=== PATIENT | female | born 1955 | race Caucasian/White ===

== ENCOUNTER 2017-09-05 23:33 | Emergency (ER) | payer BC, OTHER ==
[2017-09-06] MEDS ORDERED: Ondansetron 8 MG Tab.DIS PO ONE (00:01)
[2017-09-06] MEDS ORDERED: Alum Hydroxide/Mag Hydroxide 15 ML, Lidocaine 2% 15 ML PO ONE ×2 (00:01)
--- NOTE | 2017-09-06 00:06 | EDM.PDOC ---
ED HPI GENERAL MEDICAL PROBLEM - General Chief Complaint: General Stated Complaint: Epigastric pain Time Seen by Provider: 09/05/17 23:42 Source of Information: Reports: Patient, Family History Limitations: Reports: No Limitations - History of Present Illness INITIAL COMMENTS - FREE TEXT/NARRATIVE: 62 y.o.w.f with a h/o Hypothyroidism, was eating out last night and drank 4 cokes. 2 hours later, she felt a burning pain at her mid lower chest, not radiating. She stated, her had similar symptoms when he was diagnosed with an HI. No N/V no dizziness but chest burning. It subsides when she is walking, comes on when she goes from a supine position to a sitting position. Pt denies any cardiac risk factors. BP 163/83 pulse 85 temp 36.8 RR 20 Pulse ox 100% Onset Date: 09/05/17 Onset Time: 19:00 Duration: Hour(s):, Intermittent Location: Reports: Abdomen Quality: Reports: Burning Severity: Moderate Improves with: Reports: Rest Worsens with: Reports: Eating Context: Reports: Other (ate out, drank coke) Associated Symptoms: Reports: Other (epigastric pain) Epigastric Pain Score (Numeric/FACES): 5 - Related Data Allergies Allergy/AdvReac Type Severity Reaction Status Date / Time Sulfa (Sulfonamide Allergy Unknown unknown Verified 09/05/17 23:40 Antibiotics) Home Meds: Home Meds Levothyroxine 75 mcg PO ACBREAKFAST 09/05/17 [History] atorvaSTATin [Lipitor] 10 mg PO BEDTIME 09/05/17 [History] Past Medical History Gastrointestinal History: Reports: GERD Endocrine/Metabolic History: Reports: Hypothyroidism Social & Family History - Tobacco Use Smoking Status *Q: Never Smoker Second Hand Smoke Exposure: No - Alcohol Use Days Per Week of Alcohol Use: 0 - Recreational Drug Use Recreational Drug Use: No ED ROS GENERAL - Review of Systems Review Of Systems: See Below Constitutional: Reports: No Symptoms HEENT: Reports: No Symptoms Respiratory: Reports: No Symptoms Cardiovascular: Reports: No Symptoms Endocrine: Reports: No Symptoms GI/Abdominal: Reports: Abdominal Pain : Reports: No Symptoms Musculoskeletal: Reports: No Symptoms Skin: Reports: No Symptoms Neurological: Reports: No Symptoms Psychiatric: Reports: No Symptoms Hematologic/Lymphatic: Reports: No Symptoms Immunologic: Reports: No Symptoms ED EXAM, GENERAL - Physical Exam Exam: See Below Exam Limited By: No Limitations General Appearance: Alert, WD/WN, Mild Distress Eye Exam: Bilateral Eye: Normal Inspection Ears: Normal External Exam Ear Exam: Bilateral Ear: Auricle Normal Nose: Normal Inspection Throat/Mouth: Normal Inspection Head: Atraumatic, Normocephalic Neck: Normal Inspection Respiratory/Chest: No Respiratory Distress Cardiovascular: Normal Peripheral Pulses Peripheral Pulses: 1+: Brachial (L) GI/Abdominal: Normal Bowel Sounds, Tender (epigastric) (Female) Exam: Deferred Rectal (Female) Exam: Deferred Back Exam: Normal Inspection, Full Range of Motion Extremities: Normal Inspection, Normal Range of Motion, Non-Tender, No Pedal Edema, Normal Capillary Refill Neurological: Alert, Oriented, CN II-XII Intact, Normal Cognition, Normal Gait, No Motor/Sensory Deficits Psychiatric: Normal Affect, Normal Mood Skin Exam: Warm, Dry, Intact, Normal Color, No Rash Lymphatic: No Adenopathy EKG INTERPRETATION EKG Date: 09/06/17 Time: 00:55 Rhythm: NSR Rate (Beats/Min): 78 [place]: Normal P-Wave: Present QRS: Normal ST-T: Normal QT: Normal Comparison: NA - No Prior EKG Course - Vital Signs Text/Narrative:: 62 y.o.w.f with a h/o Hypothyroidism, was eating out last night and drank 4 cokes. 2 hours later, she felt a burning pain at her mid lower chest, not radiating. She stated, her had similar symptoms when he was diagnosed with an HI. No N/V no dizziness but chest burning. It subsides when she is walking, comes on when she goes from a supine position to a sitting position. Pt denies any cardiac risk factors. Pt had similar symptoms a few days ago. She was started on Omeprazole daily. BP 163/83 pulse 85 temp 36.8 RR 20 Pulse ox 100% PE: WNWD w F c/o epigastric tenderness/burning Impression: Gastritis/esophagitis Tx: GI cocktail, Zofran Reexam: Symptoms subsided 100% and the patient requested to be D/C'd BP was 134/ 86 on D/C Plan: D/C with instructions Last Recorded V/S: Last Vital Signs Temp 36.4 C 09/05/17 23:42 Pulse 86 09/06/17 00:15 Resp 20 09/05/17 23:42 BP 134/73 09/06/17 00:41 Pulse Ox 100 09/05/17 23:42 - Orders/Labs/Meds Orders: Active Orders 24 hr Category Date Time Status EKG Documentation Completion [RC] ASDIRECTED Care 09/06/17 00:02 Active EKG 12 Lead [EK] Routine Ther 09/06/17 00:01 Ordered Meds: Medications Discontinued Medications Generic Name Dose Route Start Last Admin Trade Name Javier PRN Reason Stop Dose Admin Al Hydroxide/Mg Hydroxide 15 0 ml 09/06/17 00:01 09/06/17 00:07 ml/ Lidocaine HCl 15 ml PO 09/06/17 00:02 15 ml ONETIME ONE Administration Ondansetron HCl 8 mg 09/06/17 00:01 09/06/17 00:07 Zofran Odt PO 09/06/17 00:02 8 mg ONETIME ONE Administration Departure - Departure Time of Disposition: 00:35 Disposition: Home, Self-Care 01 Condition: Good Clinical Impression: Gastritis - Discharge Information Instructions: Gastritis, Adult, [id number], Gastritis, Adult Referrals: Hannah Christina NP [Primary Care Provider] - Forms: ED Department Discharge Additional Instructions: Please cont your meds, take 1 table spoon of Maalox daily before bed time for 5 days. Please avoid spicy food, Coke or anything acid. Please follow u, come back to the ed if your symptoms get worse acutely - My Orders Last 24 Hours: My Active Orders 09/06/17 00:01 EKG 12 Lead [EK] Routine 09/06/17 00:02 EKG Documentation Completion [RC] ASDIRECTED - Assessment/Plan Last 24 Hours: My Active Orders 09/06/17 00:01 EKG 12 Lead [EK] Routine 09/06/17 00:02 EKG Documentation Completion [RC] ASDIRECTED
== END 2017-09-06 00:45 | disposition home or self-care (01) ==
LOC: FB.ED 23:33
DX: K29.70 Gastritis, unspecified, without bleeding (principal); Z88.2 Allergy status to sulfonamides
CPT/HCPCS: 93005; 99283; 99284; A9270-GY

== ENCOUNTER 2023-04-28 14:30 | Emergency (ER) | payer BC, MEDICARE ==
[2023-04-28] MEDS ORDERED: Sodium Chloride 0.9% 10 ML Syringe FLUSH PRN (14:51)
[2023-04-28] MEDS ORDERED: Labetalol 20 MG/4 ML Syringe IVPUSH ONE (14:53)
[2023-04-28] MEDS ORDERED: Aspirin 81 MG Tab.Chew PO ONE (15:09)
[2023-04-28] MEDS ORDERED: amLODIPine 10 MG Tab PO STA (15:41)
[2023-04-28 15:43] LABS: BASOPHILS PERCENT AUTO 0.5 % (0.2-1.5); EOSINOPHILS ABSOLUTE AUTO 0.2 x10-3/uL (0.0-0.8); EOSINOPHILS PERCENT AUTO 2.4 % (0.6-8.1); HEMATOCRIT 40.4 % (34.2-48.2); HEMOGLOBIN 13.7 g/dL (11.4-15.5); LYMPHOCYTES ABSOLUTE AUTO 1.5 x10-3/uL (1.0-4.4); LYMPHOCYTES PERCENT AUTO 21.7 % (18.4-52.1); MEAN CORPUSCULAR HEMOGLOBIN 28.5 pg (23.9-33.9); MEAN CORPUSCULAR VOLUME 83.9 fL (76.7-100.5); MEAN PLATELET VOLUME 7.9 fL (7.1-12.4); MONOCYTES ABSOLUTE AUTO 0.6 x10-3/uL (0.3-1.0); MONOCYTES PERCENT AUTO 8.3 % (4.4-15.7); NEUTROPHILS ABSOLUTE AUTO 4.5 x10-3/uL (1.5-6.3); NEUTROPHILS PERCENT AUTO 67.1 % (30.8-76.2); PLATELET COUNT,PLT 214 x10(3)uL (151-488); RED BLOOD CELL COUNT 4.81 x10(6)uL (3.60-5.20); RED CELL DISTRIBUTION WIDTH 13.8 % (12.3-16.5); WHITE BLOOD CELL COUNT,WBC 6.7 x10-3/uL (3.0-10.3)
[2023-04-28 15:50] LABS: BLOOD UREA NITROGEN,BUN 23 mg/dL (7-18); BUN/CREATININE RATIO 38.3 (9-20); CALCIUM 9.6 mg/dL (8.6-10.2); CARBON DIOXIDE,CO2 30 mmol/L (21-32); CHLORIDE,CL 105 mmol/L (100-110); CREATININE 0.6 mg/dL (0.55-1.02); ESTIMATED GFR 98 mL/min (>60); GLUCOSE RANDOM 120 mg/dL (80-116); POTASSIUM,K 4.3 mmol/L (3.5-5.3); SODIUM,NA 143 mmol/L (135-145)
[2023-04-28 15:57] LABS: A/G RATIO 1.2; ALANINE AMINOTRANSFERASE,ALT 28 U/L (12-36); ALBUMIN 3.8 g/dL (3.2-4.6); ALKALINE PHOSPHATASE 88 IU/L (56-112); ASPARTATE AMNIOTRANSFERASE,AST 16 IU/L (5-25); BILIRUBIN TOTAL 0.3 mg/dL (0.1-1.3); INR 1.05 (1.00-1.24); MAGNESIUM 1.8 mg/dL (1.8-2.5); PROTHROMBIN TIME 10.8 sec (9.0-11.1)
[2023-04-28 16:06] LABS: TROPONIN I 5.4 pg/mL (4.0-60.3)
[2023-04-28] MEDS ORDERED: amLODIPine 5 MG Tab ONE (16:55)
[2023-04-28] MEDS ORDERED: amLODIPine 5 MG Tab PO ONE (17:00)
== END 2023-04-28 17:20 | disposition home or self-care (01) ==
LOC: FB.ED 14:30
DX: R00.2 Palpitations (principal); I10 Essential (primary) hypertension; E03.9 Hypothyroidism, unspecified; Z88.2 Allergy status to sulfonamides; Z79.899 Other long term (current) drug therapy
CPT/HCPCS: 36415; 71045; 80053; 83735; 83880; 84443; 84484; 85025; 85610; 85730; 93005; 93010; 96374; 99283; 99285-25; A9270-GY; J3490

== ENCOUNTER 2024-04-06 09:45 | Day surgery (SDC) | payer MEDICARE ==
[2024-04-06] MEDS ORDERED: Sodium Chloride 0.9% 10 ML Syringe IV ONE (09:46)
[2024-04-06] MEDS ORDERED: fentaNYL 100 MCG/2 ML SDV IV ONE (09:46)
[2024-04-06] MEDS ORDERED: Midazolam 1 MG/ML 2 ML SDV IV ONE (09:46)
[2024-04-06] MEDS ORDERED: Ondansetron 4 MG/2 ML SDV IVPUSH ONE (09:46)
[2024-04-06] MEDS ORDERED: Lactated Ringers 1,000 ML IV PRN (10:00)
[2024-04-06] MEDS: Sodium Chloride 0.9% 10 ML Syringe FLUSH PRN (10:30)
[2024-04-06] MEDS: acetaZOLAMIDE 500 MG Cap.ER PO ONE (11:57)
== END 2024-04-06 12:25 | disposition home or self-care (01) ==
LOC: FB.SDS 09:45
PROVIDERS: ATTEND Ophthalmology
DX: H26.9 Unspecified cataract (principal); I10 Essential (primary) hypertension; E03.9 Hypothyroidism, unspecified; E78.2 Mixed hyperlipidemia; Z79.890 Hormone replacement therapy; Z79.82 Long term (current) use of aspirin; Z79.899 Other long term (current) drug therapy
CPT/HCPCS: 00142; A9270-GY; J2250; J2405; J3010; J3490; V2632

== ENCOUNTER 2024-04-27 09:06 | Day surgery (SDC) | payer MEDICARE ==
[2024-04-27] MEDS ORDERED: Midazolam 1 MG/ML 2 ML SDV IV ONE (09:07)
[2024-04-27] MEDS ORDERED: fentaNYL 100 MCG/2 ML SDV IV ONE (09:07)
[2024-04-27] MEDS ORDERED: Sodium Chloride 0.9% 10 ML Syringe IV ONE (09:07)
[2024-04-27] MEDS ORDERED: Lactated Ringers 1,000 ML IV PRN (09:15)
[2024-04-27] MEDS: Sodium Chloride 0.9% 10 ML Syringe FLUSH PRN (09:47)
[2024-04-27] MEDS: acetaZOLAMIDE 500 MG Cap.ER PO ONE (10:45)
== END 2024-04-27 11:15 | disposition home or self-care (01) ==
LOC: FB.SDS 09:06
PROVIDERS: ATTEND Ophthalmology
DX: H26.9 Unspecified cataract (principal); I10 Essential (primary) hypertension; E03.9 Hypothyroidism, unspecified; E78.2 Mixed hyperlipidemia; Z79.890 Hormone replacement therapy; Z79.899 Other long term (current) drug therapy; Z88.2 Allergy status to sulfonamides
CPT/HCPCS: 66984; A9270; J2250; J3010; J3490; V2632; 00142